=== PATIENT | male | born 1965 | race Caucasian/White ===

== ENCOUNTER 2016-04-30 11:15 | Emergency (ER) | payer SELFPAY | END 2016-04-30 12:12 | disposition home or self-care (01) | LOC: ER 11:15 | DX: K40.90 Unilateral inguinal hernia, without obstruction or gangrene, not specified as recurrent (principal); F17.200 Nicotine dependence, unspecified, uncomplicated; Z88.0 Allergy status to penicillin | CPT/HCPCS: 93005; 99283 ==